=== PATIENT | female | born 1990 | race Caucasian/White ===

== ENCOUNTER 2017-09-08 06:43 | Emergency (ER) | payer OTHER ==
[~2017-09-08] VITALS: Ht 157.5 cm; Wt 95.7 kg
[~2017-09-08 06:43] MED LIST: BCPILLS PO
[2017-09-08 06:53] VITALS: TEMP 36.8; Ht 157.5 cm; Wt 95.7 kg
[2017-09-08] MEDS ORDERED: ONDANSETRON INJ 2 MG/ML 2 ML VIAL IV STA (07:04)
[2017-09-08] MEDS ORDERED: SODIUM CHLORIDE 0.9% 1000ML 1,000 ML IV STA (07:04)
[2017-09-08] MEDS ORDERED: SODIUM CHLORIDE 0.9% 1000ML 1,000 ML IV ONE (07:04)
[2017-09-08] MEDS ORDERED: KETOROLAC TROMETHAMINE 30 MG/ML VIAL IV STA (07:04)
--- NOTE | 2017-09-08 07:06 | EMERGENCY ROOM VISIT NOTE ---
History Report prepared by Marlee: Adan Michael Under the Supervision of: Dr. Ganga Lemos M.D. First contact with patient: 06:56 Chief Complaint: ABDOMINAL PAIN Stated Complaint: STOMACH/SIDE PAIN History of Present Illness The patient is a 26 year old female who presents to the Emergency Room with complaints of constant right-sided abdominal pain beginning two hours ago. The patient states that her pain is located in her right abdomen and radiates to her back. She notes that her pain woke her up this morning. She reports that she feels hot and is currently nauseous. She denies any urinary symptoms, chills , vomiting, CP, SOB, numbness/weakness in her legs, leg pain, and headache. The patient states that her symptoms improve when she moves. She notes that she does not have a personal or family history of kidney stones but has a history of PCOS. She reports that she did not strain herself recently during work and states that there is no chance that she is . Source of History: patient Onset: two hours ago Position: abdomen (right-sided) Timing: constant Modifying Factors (Relieving): other (moving) Associated Symptoms: + nausea, + back pain, No headache, No urinary symptoms Note: The patient states that she feels hot. She also denies any numbness/weakness in her legs and leg pain. Review of Systems See HPI for pertinent positives & negatives. A total of 10 systems reviewed and were otherwise negative. Past Medical & Surgical Medical Problems: (1) PCOS (polycystic ovarian syndrome) Old medical records were reviewed. Nurse's notes were reviewed and I agree with. Family History Diabetes mellitus FHx: cancer Social History Smoking Status: Never Smoker Marital Status: single Occupation Status: employed Current/Historical Medications Scheduled Tamsulosin Hcl (Flomax), 0.4 MG PO QD Scheduled PRN Oxycodone Immediate Rel Tab (Roxicodone Ir), 1-2 TAB PO Q4H PRN for Severe Pain Allergies Coded Allergies: No Known Allergies (Unverified , 09/08/17) Physical Exam Vital Signs Date Time Temp Pulse Resp B/P (MAP) Pulse Ox O2 Delivery O2 Flow Rate FiO2 09/08/17 08:12 90 20 125/78 100 09/08/17 06:53 36.8 110 19 147/95 95 Room Air Physical Exam General: Non-ill appearing young female in no acute distress. HEENT: Normal cephalic atraumatic. Pupils are equal round and reactive to light. Extraocular movements are intact. Oropharynx is pink with moist mucous membranes. No swelling of the mouth lips or tongue. Neck: Supple with a midline trachea. No meningeal signs or stiffness, no JVD or bruits. No Stridor. Chest: Clear to auscultation bilaterally. No wheezes or rhonchi. No increased work of breathing. Heart: regular rate and rhythm. Abdomen: Soft, nondistended without rebound guarding or rigidity, mildly tender in right mid abdomen, no masses, no rash. Extremities: No cyanosis clubbing or edema. No calf tenderness or assymetry Spine/Back. Non tender to palpation. No CVA tenderness Skin: Good turgor without rashes. Neurologic exam: Cranial nerves two through 12 are intact. Motor and sensation are intact and symmetrical throughout. Medical Decision & Procedures ER Provider Diagnostic Interpretation: Radiology results as stated below per my review and radiologist interpretation: CT SCAN OF THE ABDOMEN AND PELVIS WITHOUT IV CONTRAST FINDINGS: Lung bases: The heart is normal in size and without pericardial effusion. The lung bases are clear. There is a tiny hiatal hernia. Liver: The unenhanced liver is enlarged, measuring 18.4 cm in length. The liver demonstrates diffusely diminished attenuation consistent with severe hepatic steatosis. Fatty sparing is seen adjacent to gallbladder fossa. There is no intrahepatic biliary ductal dilatation. Gallbladder: Unremarkable. Spleen: Normal in size and attenuation. Pancreas: Unremarkable. Adrenal glands: Unremarkable. Kidneys: The unenhanced kidneys are normal in size. There is a 5 mm obstructing calculus in the right proximal ureter at the level of L3-L4 seen on axial image #217. This causes moderate right hydronephrosis. An additional 13 mm calculus is seen in the lower pole of the right kidney, and may be located within a calyceal diverticulum or cortical in location. No left renal calculi are identified and there is no left-sided hydronephrosis. There is a 12 mm hyperdense focus in the interpolar right kidney on image #172 which likely represents a complex/hemorrhagic cyst. Abdominal vasculature: The abdominal aorta is normal in course and caliber. Bowel: The small bowel and colon are normal in course and caliber. The appendix is well-visualized and normal. Peritoneum: There is no intraperitoneal free air or abdominal ascites. There is a small fat-containing umbilical hernia. Lymphadenopathy: None. Pelvic viscera: The bladder, uterus, and adnexa are normal as visualized. Bilateral ovarian follicles are noted. Skeletal structures: No lytic or blastic lesions are seen. Mild sclerotic change is noted in the sacroiliac joints. IMPRESSION: 1. There is a 5 mm obstructing calculus in the right proximal ureter. This causes moderate right hydronephrosis. 2. A 1.3 cm calcification is seen in the lower pole of the right kidney as above. 3. Hepatomegaly and severe hepatic steatosis. 4. A 12 mm hyperdense focus in the interpolar right kidney likely represents a complex/hemorrhagic cyst. A nonemergent follow-up renal ultrasound is recommended for further assessment. Electronically signed by: Bryan Gardner M.D. 09/08/2017 8:07 AM Laboratory Results 09/08/17 07:37 Red Blood Count 4.66, Mean Corpuscular Volume 88.8, Mean Corpuscular Hemoglobin 32.6, Mean Corpuscular Hemoglobin Concent 36.7, Mean Platelet Volume 10.4, Neutrophils (%) (Auto) 64.2, Lymphocytes (%) (Auto) 29.1, Monocytes (%) (Auto) 3.9, Eosinophils (%) (Auto) 2.3, Basophils (%) (Auto) 0.3, Neutrophils # (Auto) 4.24, Lymphocytes # (Auto) 1.92, Monocytes # (Auto) 0.26, Eosinophils # (Auto) 0.15, Basophils # (Auto) 0.02 09/08/17 07:37 Test 09/08/17 07:15 09/08/17 07:37 Urine Color ORANGE Urine Appearance CLOUDY (CLEAR) Urine pH 5.5 (4.5-7.5) Urine Specific [place] 1.024 (1.000-1.030) Urine Protein 1+ (NEG) Urine Glucose (UA) NEG (NEG) Urine Ketones NEG (NEG) Urine Occult Blood 3+ (NEG) Urine Nitrite NEG (NEG) Urine Bilirubin NEG (NEG) Urine Urobilinogen NEG (NEG) Urine Leukocyte Esterase TRACE (NEG) Urine WBC (Auto) 1-5 /hpf (0-5) Urine RBC (Auto) >30 /hpf (0-4) Urine Hyaline Casts (Auto) 1-5 /lpf (0-5) Urine Epithelial Cells (Auto) >30 /lpf (0-5) Urine Bacteria (Auto) NEG (NEG) Urine Test NEG (NEG) White Blood Count 6.60 K/uL (4.8-10.8) Red Blood Count 4.66 M/uL (4.2-5.4) Hemoglobin 15.2 g/dL (12.0-16.0) Hematocrit 41.4 % (37-47) Mean Corpuscular Volume 88.8 fL (80-100) Mean Corpuscular Hemoglobin 32.6 pg (25-34) Mean Corpuscular Hemoglobin Concent 36.7 g/dl (32-36) Platelet Count 242 K/uL (130-400) Mean Platelet Volume 10.4 fL (7.4-10.4) Neutrophils (%) (Auto) 64.2 % Lymphocytes (%) (Auto) 29.1 % Monocytes (%) (Auto) 3.9 % Eosinophils (%) (Auto) 2.3 % Basophils (%) (Auto) 0.3 % Neutrophils # (Auto) 4.24 K/uL (1.4-6.5) Lymphocytes # (Auto) 1.92 K/uL (1.2-3.4) Monocytes # (Auto) 0.26 K/uL (0.11-0.59) Eosinophils # (Auto) 0.15 K/uL (0-0.5) Basophils # (Auto) 0.02 K/uL (0-0.2) RDW Standard Deviation 40.2 fL (36.4-46.3) RDW Coefficient of Variation 12.6 % (11.5-14.5) Immature Granulocyte % (Auto) 0.2 % Immature Granulocyte # (Auto) 0.01 K/uL (0.00-0.02) Anion Gap 6.0 mmol/L (3-11) Est Creatinine Clear Calc Drug Dose 99.3 ml/min Estimated GFR () 99.5 Estimated GFR (Non- 85.9 BUN/Creatinine Ratio 13.8 (10-20) Calcium Level 8.8 mg/dl (8.5-10.1) Total Bilirubin 0.3 mg/dl (0.2-1) Direct Bilirubin < 0.1 mg/dl (0-0.2) Aspartate Amino Transf (AST/SGOT) 27 U/L (15-37) Alanine Aminotransferase (ALT/SGPT) 52 U/L (12-78) Alkaline Phosphatase 52 U/L (45-117) Total Protein 7.5 gm/dl (6.4-8.2) Albumin 3.9 gm/dl (3.4-5.0) Lipase 218 U/L (73-393) Laboratory studies as stated above per my review. Medications Administered Medications (Trade) Dose Ordered Sig/Lizeth Route Start Time Stop Time Status Last Admin Dose Admin Sodium Chloride 1,000 ml @ 999 mls/hr Q1H1M STAT IV 09/08/17 07:04 09/08/17 08:04 DC 09/08/17 07:35 999 MLS/HR Ketorolac Tromethamine (Toradol Inj) 30 mg NOW STAT IV 09/08/17 07:04 09/08/17 07:06 DC 09/08/17 07:34 30 MG Ondansetron HCl (Zofran Inj) 4 mg NOW STAT IV 09/08/17 07:04 09/08/17 07:06 DC 09/08/17 07:35 4 MG ED Course 0658: Past medical records reviewed. The patient was evaluated in room B6, and a complete history and physical examination were performed. 0704: Zofran Inj 4mg IV, Toradol Inj 30mg IV, Sodium Chloride 1000 ml @ 999 mls/ hr IV 0756: I reevaluated and updated the patient. Her pain went from 9/10 to a 4/10. She appears comfortable and just got back from CT. 0831: I rechecked the patient. I spoke to her about kidney stones. She currently has no pain. Upon reevaluation, the patient is stable. I discussed the results and treatment plan with her. She verbalized agreement of the treatment plan. The patient was discharged home. Medical Decision Differential diagnoses include: kidney stone, gallbladder disease, appendicitis , infection, ovarian pathology, and electrolyte/metabolic abnormalities. This patient comes in as described above. She has sudden onset of right abdominal pain going into her back. On exam, she has some mild tenderness in the right mid abdomen. She does not believe she is . she has no urinary symptoms. IV access established was hydrated with 1 L IV normal saline bolus. She was given Toradol 30 mg IV and Zofran 4 mgs IV. Urinalysis and blood work was obtained. I also did order a CAT scan of the abdomen and pelvis after explained the risks and benefits to the patient to evaluate for stone appendectomy and other pathology. She was reassessed frequently. She does have a history of ovarian cyst and could also be related to that. Her urinalysis does not suggest infection with a backup culture pending. She has no white count or fever to suggest infection and she has no urinary symptoms to suggest infection. She has no acute electrolyte or metabolic abnormality has normal kidney function. The CAT scan shows a 5 mm proximal stone on the right. She is resting very comfortably and does feel up to going home. I think this is reasonable. Given the proximal mid size stone she may benefit from Flomax and I started on a prescription of Flomax. He was warned that this could make her dizzy and be careful after taking. She should also use ibuprofen 600 mg every 6 hours, take with food. For more severe pain, she can use OxyIR 5 mg, 1 or 2 pills every 4-6 hours as needed. She was warned that this can make her drowsy and do not take before drink, drive, working. I encouraged her follow- up with her doctor tomorrow for recheck and if the symptoms persist or worsen. she may ultimately need to be seen by urology. I also told her that if she has fever or uncontrolled pain or any signs of infection she is to return to the ER immediately. She was happy with the plan as was her boyfriend she was discharged to home. Medication Reconcilliation Current Medication List: was personally reviewed by me Blood Pressure Screening Patient's blood pressure: Normal blood pressure Blood pressure disposition: Did not require urgent referral Impression Primary Impression: Renal colic Additional Impressions: Kidney stone Right flank pain Scribe Attestation The scribe's documentation has been prepared under my direction and personally reviewed by me in its entirety. I confirm that the note above accurately reflects all work, treatment, procedures, and medical decision making performed by me. Departure Information Dispostion Home / Self-Care Prescriptions Oxycodone Immediate Rel Tab (ROXICODONE IR) 5 Mg Tab 1-2 TAB PO Q4H Y for Severe Pain, #24 TAB Prov: Ganga Lemos M.D. 09/08/17 Tamsulosin Hcl (FLOMAX) 0.4 Mg Cap 0.4 MG PO QD for 10 Days, #10 CAP Prov: Ganga Lemos M.D. 09/08/17 Referrals No Doctor, Assigned (PCP) Forms HOME CARE DOCUMENTATION FORM, IMPORTANT VISIT INFORMATION Patient Instructions My [facility] Additional Instructions Rest. Drink plenty of fluids. Strain your urine. Use ibuprofen 600 mg every 6 hours, take with food More severe pain, use OxyIR 5 mg, 1 or 2 pills every 4-6 hours as needed OxyIR may make you drowsy and do not take before drinking, driving, working Use Flomax 0.4 mg once a day for the next 10 days Be careful as this may make you a little bit dizzy so be careful getting up and down Return to the ER immediately for fever, burning on urination, increasing or uncontrollable pain, not tolerating fluids, any new problems or concerns Follow-up with your doctor on Saturday for recheck and if this persists you may need to see urologist as well. Problem Qualifiers
[2017-09-08 07:56] LABS: BASO % 0.3 %; BASO ABS # 0.02 K/uL (0-0.2); EOS % 2.3 %; EOS ABS # 0.15 K/uL (0-0.5); HEMATOCRIT 41.4 % (37-47); HEMOGLOBIN 15.2 g/dL (12.0-16.0); IG# 0.01 K/uL (0.00-0.02); LYMPH % 29.1 %; LYMPH ABS # 1.92 K/uL (1.2-3.4); MEAN CELL VOLUME 88.8 fL (80-100); MEAN CORPUSCULAR HEMOGLOBIN 32.6 pg (25-34); MEAN CORPUSCULAR HGB CONC 36.7 g/dl (32-36); MEAN PLATELET VOLUME 10.4 fL (7.4-10.4); MONO % 3.9 %; MONO ABS # 0.26 K/uL (0.11-0.59); NEUT % 64.2 %; NEUT ABS # 4.24 K/uL (1.4-6.5); PLATELET COUNT 242 K/uL (130-400); RED CELL DISTRIBUTION WIDTH CV 12.6 % (11.5-14.5); RED CELL DISTRIBUTION WIDTH SD 40.2 fL (36.4-46.3)
--- NOTE | 2017-09-08 08:09 | DIAGNOSTIC IMAGING REPORT ---
CT SCAN OF THE ABDOMEN AND PELVIS WITHOUT IV CONTRAST CLINICAL HISTORY: Right-sided abdominal pain. COMPARISON STUDY: No priors. TECHNIQUE: CT scan of the abdomen and pelvis is performed from the lung bases to the proximal femora. Images are reviewed in the axial, sagittal, and coronal planes. IV contrast was not administered for this examination as per the referring clinician. A dose lowering technique was utilized adhering to the principles of ALARA. CT DOSE: 1741.89 mGy.cm FINDINGS: Lung bases: The heart is normal in size and without pericardial effusion. The lung bases are clear. There is a tiny hiatal hernia. Liver: The unenhanced liver is enlarged, measuring 18.4 cm in length. The liver demonstrates diffusely diminished attenuation consistent with severe hepatic steatosis. Fatty sparing is seen adjacent to gallbladder fossa. There is no intrahepatic biliary ductal dilatation. Gallbladder: Unremarkable. Spleen: Normal in size and attenuation. Pancreas: Unremarkable. Adrenal glands: Unremarkable. Kidneys: The unenhanced kidneys are normal in size. There is a 5 mm obstructing calculus in the right proximal ureter at the level of L3-L4 seen on axial image #217. This causes moderate right hydronephrosis. An additional 13 mm calculus is seen in the lower pole of the right kidney, and may be located within a calyceal diverticulum or cortical in location. No left renal calculi are identified and there is no left-sided hydronephrosis. There is a 12 mm hyperdense focus in the interpolar right kidney on image #172 which likely represents a complex/hemorrhagic cyst. Abdominal vasculature: The abdominal aorta is normal in course and caliber. Bowel: The small bowel and colon are normal in course and caliber. The appendix is well-visualized and normal. Peritoneum: There is no intraperitoneal free air or abdominal ascites. There is a small fat-containing umbilical hernia. Lymphadenopathy: None. Pelvic viscera: The bladder, uterus, and adnexa are normal as visualized. Bilateral ovarian follicles are noted. Skeletal structures: No lytic or blastic lesions are seen. Mild sclerotic change is noted in the sacroiliac joints. IMPRESSION: 1. There is a 5 mm obstructing calculus in the right proximal ureter. This causes moderate right hydronephrosis. 2. A 1.3 cm calcification is seen in the lower pole of the right kidney as above. 3. Hepatomegaly and severe hepatic steatosis. 4. A 12 mm hyperdense focus in the interpolar right kidney likely represents a complex/hemorrhagic cyst. A nonemergent follow-up renal ultrasound is recommended for further assessment. Electronically signed by: Bryan Gardner M.D. 09/08/2017 8:07 AM Dictated Date/Time: 09/08/2017 8:00 AM
[2017-09-08 08:12] VITALS: BP 125/78; PULSE 90; O2SAT 100
[2017-09-08 08:18] LABS: ALBUMIN 3.9 gm/dl (3.4-5.0); ALT/SGPT 52 U/L (12-78); BLOOD UREA NITROGEN 13 mg/dl (7-18); CALCIUM 8.8 mg/dl (8.5-10.1); CARBON DIOXIDE 27 mmol/L (21-32); CREATININE 0.91 mg/dl (0.60-1.20); GLUCOSE 100 mg/dl (70-99); LIPASE 218 U/L (73-393); POTASSIUM 3.5 mmol/L (3.5-5.1); SODIUM 138 mmol/L (136-145)
[2017-09-08 08:21] LABS: ALKALINE PHOSPHATASE 52 U/L (45-117); AST/SGOT 27 U/L (15-37); TOTAL PROTEIN 7.5 gm/dl (6.4-8.2)
[2017-09-08] MEDS ORDERED: TAMS0.4C38 PO (08:35)
[2017-09-08] MEDS ORDERED: OXYC1TAB3 PO (08:35)
== END 2017-09-08 08:40 | disposition home or self-care (01) ==
LOC: C.EDB 06:44
DX: N23 Unspecified renal colic (principal); N20.0 Calculus of kidney; R10.9 Unspecified abdominal pain; E28.2 Polycystic ovarian syndrome; Z83.3 Family history of diabetes mellitus; Z80.9 Family history of malignant neoplasm, unspecified